=== PATIENT | female | born 1970 | race African-American/Black ===

== ENCOUNTER 2017-10-07 18:28 | Emergency (ER) | payer OTHER ==
[~2017-10-07] VITALS: Ht 165.1 cm; Wt 75.0 kg
[~2017-10-07 18:28] MED LIST: trazadone PO
[2017-10-07 18:49] VITALS: Ht 165.1 cm; Wt 75.0 kg
[2017-10-07] MEDS ORDERED: TOPI25CA PO (19:13)
[2017-10-07] MEDS ORDERED: BUPR300T48 PO (19:13)
[2017-10-07] MEDS ORDERED: QUET300T13 PO (19:13)
[2017-10-07] MEDS ORDERED: DIPH25CA6 PO (19:13)
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
== END 2017-10-07 19:12 | disposition home or self-care (01) ==
LOC: E/R 18:28
DX: F10.120 Alcohol abuse with intoxication, uncomplicated (principal); Z76.0 Encounter for issue of repeat prescription
CPT/HCPCS: 99283